=== PATIENT | male | born 1960 | race Caucasian/White ===

== ENCOUNTER 2019-12-29 09:04 | Outpatient (CLI) | payer OTHER ==
--- NOTE | 2019-12-30 07:32 | RAD ---
XR Chest Pa Lat STANDARD History: Shortness of breath Comparison: None. Findings: Heart size is enlarged. Mild pulmonary edema. Small effusions. No pneumothorax. No acute os seous abnormality. Mildly distended loops of bowel the left upper quadrant of the abdomen. Impression: Mild decompensated congestive heart failure.
== END 2019-12-29 09:05 | disposition home or self-care (01) ==
LOC: RAD-FRANK 09:04
PROVIDERS: ATTEND Nurse Practitioner Family
DX: R06.02 Shortness of breath (principal); I50.9 Heart failure, unspecified
CPT/HCPCS: 71046

== ENCOUNTER 2020-06-04 07:45 | Outpatient (CLI) | payer OTHER ==
--- NOTE | 2020-06-04 08:04 | RAD ---
2 views of the chest: 06/04/2020 COMPARISON: 12/29/2019 HISTORY: Congestive heart failure FINDINGS: The cardiac silhouette is enlarged with pulmonary vascular congestion noted. There is diffu se increased linear interstitial density which is stable when compared to the prior exam. There is no pneumothorax, lobar consolidation, pleural fluid, or alveolar edema. IMPRESSION: Prominent cardiac silhouette with stable pulmonary vascular congestion and stable increas ed linear interstitial density. No focal consolidation or alveolar edema.
== END 2020-06-04 07:46 | disposition home or self-care (01) ==
LOC: RAD-FRANK 07:45
PROVIDERS: ATTEND Internal Medicine Cardiovascular Disease
DX: I50.9 Heart failure, unspecified (principal); J98.4 Other disorders of lung; I87.8 Other specified disorders of veins
CPT/HCPCS: 71046

== ENCOUNTER 2020-06-30 14:17 | Outpatient (CLI) | payer OTHER | END 2020-06-30 14:18 | disposition home or self-care (01) | LOC: RAD-FRANK 14:17 | PROVIDERS: ATTEND Nurse Practitioner Family | DX: Z48.812 Encounter for surgical aftercare following surgery on the circulatory system (principal); Z95.2 Presence of prosthetic heart valve; I51.7 Cardiomegaly | CPT/HCPCS: 71046 ==

== ENCOUNTER 2020-10-12 09:38 | Outpatient (CLI) | payer OTHER | END 2020-10-12 09:39 | disposition home or self-care (01) | LOC: BICRAD 09:38 | PROVIDERS: ATTEND Internal Medicine Critical Care Medicine | DX: R06.00 Dyspnea, unspecified (principal) | CPT/HCPCS: 71046 ==

== ENCOUNTER 2020-10-29 09:46 | Outpatient (CLI) | payer OTHER | END 2020-10-29 09:47 | disposition home or self-care (01) | LOC: ULT 09:46 | PROVIDERS: ATTEND Nurse Practitioner Family | DX: R09.89 Other specified symptoms and signs involving the circulatory and respiratory systems (principal) | CPT/HCPCS: 76775 ==

== ENCOUNTER 2020-12-01 06:15 | Day surgery (SDC) | payer OTHER ==
[2020-11-30 10:50] VITALS: BMI 38.3
[2020-12-01] MEDS ORDERED: PROPOFOL 200 MG/20 ML VIAL ONE (08:02)
[2020-12-01] MEDS ORDERED: Lidocaine 1% PF 5 ML VIAL ONE (08:02)
== END 2020-12-01 09:00 | disposition home or self-care (01) ==
LOC: SDC 06:15
PROVIDERS: ATTEND Internal Medicine Gastroenterology
PROC: 0DJD8ZZ Inspection of Lower Intestinal Tract, Via Natural or Artificial Opening Endoscopic (ICD-10-PCS; principal; 2020-12-01)
DX: K57.31 Diverticulosis of large intestine without perforation or abscess with bleeding (principal); K60.2 Anal fissure, unspecified; I11.0 Hypertensive heart disease with heart failure; I50.9 Heart failure, unspecified; I25.10 Atherosclerotic heart disease of native coronary artery without angina pectoris; Z80.0 Family history of malignant neoplasm of digestive organs; Z79.01 Long term (current) use of anticoagulants; Z79.82 Long term (current) use of aspirin; Z79.899 Other long term (current) drug therapy; Z95.1 Presence of aortocoronary bypass graft; Z95.2 Presence of prosthetic heart valve; Z95.818 Presence of other cardiac implants and grafts
CPT/HCPCS: J2704

== ENCOUNTER 2021-09-08 08:25 | Outpatient (CLI) | payer BC ==
[2021-09-08] MEDS ORDERED: ISOVUE-370 76% 1 ML ONE (15:16)
== END 2021-09-08 08:26 | disposition home or self-care (01) ==
LOC: BICCT 08:25
PROVIDERS: ATTEND Nurse Practitioner Family
DX: R09.89 Other specified symptoms and signs involving the circulatory and respiratory systems (principal); M47.816 Spondylosis without myelopathy or radiculopathy, lumbar region; M48.061 Spinal stenosis, lumbar region without neurogenic claudication
CPT/HCPCS: 74175; 82565

== ENCOUNTER 2022-02-09 08:32 | Outpatient (CLI) | payer BC | END 2022-02-09 08:33 | disposition home or self-care (01) | LOC: RAD-FRANK 08:32 | PROVIDERS: ATTEND Nurse Practitioner Family | DX: M25.561 Pain in right knee (principal); M17.11 Unilateral primary osteoarthritis, right knee ==

== ENCOUNTER 2022-05-09 15:31 | Outpatient (CLI) | payer BC | END 2022-05-09 15:32 | disposition home or self-care (01) | LOC: RAD-FRANK 15:31 | PROVIDERS: ATTEND Nurse Practitioner Family | DX: M25.572 Pain in left ankle and joints of left foot (principal) ==